=== PATIENT | male | born 1975 | race Two or more races ===

== ENCOUNTER 2023-09-22 13:26 | Emergency (ER) | payer OTHER ==
[~2023-09-22] VITALS: Ht 177.8 cm; Wt 125.7 kg
[2023-09-22 14:22] LABS: Basophils # (auto) 0.1 10 ^3/uL (0-0.2); Eosinophils # (auto) 0 10 ^3/uL (0-0.8); Hematocrit 53.4 % (41.0-53.0); Lymphocytes # (auto) 2.4 10 ^3/uL (0.4-5.4); Monocytes # (auto) 0.6 10 ^3/uL (0-1.3); Nucleated Red Blood Cells % 0.3 %; Platelet Count (auto) 223 10^3/uL (140-450)
[2023-09-22 14:23] LABS: Basophils % (auto) 0.9 % (0.0-2.0); Eosinophils % (auto) 0.2 % (0.0-7.0); Hemoglobin 18.9 g/dL (13.5-17.5); Lymphocytes % (auto) 28.5 % (10.0-50.0); Mean Corpuscular Hemoglobin 31.7 pg (28.0-32.0); Mean Corpuscular Hgb Conc. 35.3 g/dL (32.0-36.0); Mean Corpuscular Volume 89.6 fL (80.0-100.0); Monocytes % (auto) 6.8 % (0.0-12.0); Neutrophils # (auto) 5.3 10 ^3/uL (1.6-8.6); Neutrophils % (auto) 63.6 % (37.0-80.0); Red Blood Cells 5.96 10^6/uL (4.5-5.90); White Blood Cell 8.3 10^3/uL (4.4-10.8)
[2023-09-22 14:25] VITALS: BP 169/95; PULSE 99; RESP 20; TEMP 98.4; O2SAT 98
[2023-09-22 14:35] LABS: Alanine Aminotransferase 128 U/L (7-40); Albumin 4.8 g/dL (3.2-4.8); Alkaline Phosphatase 122 U/L (46-116); Anion Gap 15 (5-15); Aspartate Aminotransferase 101 U/L (13-40); BUN/Creatinine Ratio 7.5 (10.0-20.0); Blood Urea Nitrogen 6 mg/dL (9-23); Calcium 9.8 mg/dL (8.7-10.4); Carbon Dioxide 21 mmol/L (20-30); Chloride 100 mmol/L (98-107); Glucose 139 mg/dL (74-106); Potassium 3.3 mmol/L (3.5-5.1); Sodium 136 mmol/L (136-145)
[2023-09-22 14:36] LABS: Bilirubin, Total 1.6 mg/dL (0.2-1.0); Total Protein 8.4 g/dL (5.7-8.2)
[2023-09-22] MEDS: SODIUM CHLORIDE 0.9% 1,000 ML IV ONE (16:00)
[2023-09-22] MEDS: chlordiazePOXIDE HCL 5 MG CAP PO ONE (16:05)
[2023-09-22] MEDS: POTASSIUM EFFERVESENT TAB 25 MEQ PO ONE (16:05)
[2023-09-22] MEDS: cloNIDine HCL 0.1 MG TAB PO ONE (16:10)
== END 2023-09-22 22:39 | disposition left against medical advice (07) ==
LOC: ER 13:26
DX: I10 Essential (primary) hypertension (principal); F10.10 Alcohol abuse, uncomplicated; G90.4 Autonomic dysreflexia; Z90.89 Acquired absence of other organs
CPT/HCPCS: 36415; 70450; 80053; 84484; 85025; 93005; 96360; 99284; J7030; 96361